=== PATIENT | female | born 1965 | race Two or more races ===

== ENCOUNTER 2019-02-12 16:13 | Outpatient (CLI) | payer BC ==
[~2019-02-12 16:13] MED LIST: LISI-170 PO
== END 2019-02-12 23:59 | disposition home or self-care (01) ==
LOC: RAD 16:13
PROVIDERS: ATTEND Family Medicine
DX: R10.11 Right upper quadrant pain (principal); R50.9 Fever, unspecified
CPT/HCPCS: 76700